=== PATIENT | female | born 1955 | race Caucasian/White ===

== ENCOUNTER → 2020-04-09 | Outpatient (CLI) | payer OTHER ==
[~2020-04-09] MED LIST: ASPIR 8181 MG PO; ATORVASTATIN CA40 MG PO; BENADRYL25 MG PO; CARVEDILOL12.5 MG; CARVEDILOL3.125 MG PO; CHANTIX1 EACH PO; COLACE100 MG PO; COREG25 MG PO; DUONEB 2.5-0.5 M3 ML INH; FISH OIL 1,001000 M2 PO; GABAPENTIN100 MG; HYDROXYZINE HCL25 M2 PO; IBUPROFEN 800800 M1 PO; LASIX 20 MG TAB20 MG PO; LEVAQUIN 500 M500 M4 PO; LISINOPRIL10 MG PO; LISINOPRIL5 MG; MACROBID 100 M100 M1 PO; MIRALAX17 GM PO; MYLANTA PO; NAPROSYN500 MG PO; NICOTINE TRANSD21 M1; NICOTINE TRANSD21 M1 TRANSDERM; NITROGLYCERIN0.4 MG SUBLING; NOHOMEMEDICATIONS; PREDNISONE 10 M10 MG PO; PREDNISONE 20 M20 M1 PO; PROZAC10 MG PO; REQUIP 1 MG TABL1 M1; THROAT LOZENGE1 EACH MM; TRAMADOL 50 MG50 MG PO; VENTOLIN HFA 1818 GM INH; VITAMIN D 5050000 I1 PO; VITAMIN D1000 UNI1; ZPAK PO
--- NOTE | ~2020-04-09 | EEG ---
[address] [address] EEG STUDY REPORT Name: KODY MARIN Room: [facility]#: [id number] Admission: 04/09/20 Attend Phys: Aranza Hartley Discharge: Date of : 59 Report #: [id number] THIS REPORT FOR: cc: Anum Chamorro Linda J. DO ~ Ortega Brunson MD DATE OF SERVICE: 04/09/2020 EEG REPORT This patient is being evaluated for dizziness. EEG is being done to evaluate the possibility of seizure. EEG was done by placing the electrode by standard 10-20 system of electrode placement. Both referential and sequential montages were used for recording. Background activity in this patient's EEG is about 9 Hz and 30 microvolts. A lot of this EEG was obtained when the patient was asleep that is associated with bilateral slowing and vertex sharp waves. Photic stimulation is unremarkable. Throughout the record, no active epileptiform activity was noticed. IMPRESSION: This patient's EEG is unremarkable and does not demonstrate any active epileptiform activity. Thank you very much for this referral. By: [id number] Brunson MD /nt
== END ==
LOC: M.MRI 10:55
PROVIDERS: ATTEND Family Medicine
DX: T75.3XXS Motion sickness, sequela (principal); R11.2 Nausea with vomiting, unspecified; R26.89 Other abnormalities of gait and mobility; R42 Dizziness and giddiness; X58.XXXS Exposure to other specified factors, sequela